=== PATIENT | female | born 1975 | race Caucasian/White ===

== ENCOUNTER → 2018-04-03 | Outpatient (CLI) | payer OTHER ==
[2018-04-03 13:06] LABS: INTERNATIONAL RATION (INR) 0.92; PROTHROMBIN TIME 12.8 SEC (11.4-15.4)
[2018-04-03 13:07] LABS: PARTIAL THROMBOPLASTIN TIME 30.7 SEC (23.5-35.8)
[2018-04-04 11:40] LABS: HEPATITIS A AB IGM Negative (Negative); HEPATITIS B CORE AB IGM Negative (Negative); HEPATITS B SURFACE ANTIGEN Negative (Negative)
[2018-04-04 13:58] LABS: HEPATITIS C VIRUS ANTIBODY <0.1 s/co ratio (0.0-0.9)
[2018-04-06 13:37] LABS: ALK PHOS BONE FRACTION 18 % (14-68); ALK PHOS LIVER FRACTION 82 % (18-85); ALKALINE PHOSPHATASE TOTAL 625 IU/L (39-117)
[2018-04-06 14:53] LABS: ALK PHOS INTESTINAL FRACTION 0 % (0-18)
== END ==
LOC: OD 12:16
PROVIDERS: ATTEND Nurse Practitioner Family
DX: L29.9 Pruritus, unspecified (principal); R94.5 Abnormal results of liver function studies
CPT/HCPCS: 36415; 80074; 82140; 82977; 84080; 85610; 85730